=== PATIENT | male | born 1995 | race Caucasian/White ===

== ENCOUNTER 2016-03-26 18:06 | Emergency (ER) | payer OTHER, MEDICAID ==
[~2016-03-26] VITALS: Ht 172.7 cm; Wt 97.0 kg
[2016-03-26] MEDS ORDERED: TETANUS, DIPTHERIA, PERTUSSIS (ADACELL) VACCINE 0.5 ML VIAL IM ONE (19:00)
[2016-03-26 19:20] VITALS: BP 129/87
== END 2016-03-26 19:19 | disposition home or self-care (01) ==
LOC: ED 18:11
DX: S61.210A Laceration without foreign body of right index finger without damage to nail, initial encounter (principal); W26.8XXA Contact with other sharp object(s), not elsewhere classified, initial encounter; Y92.009 Unspecified place in unspecified non-institutional (private) residence as the place of occurrence of the external cause
CPT/HCPCS: 12001; 90471; 90715; 99282; 99283

== ENCOUNTER 2016-03-28 11:05 | Emergency (ER) | payer OTHER, MEDICAID ==
[~2016-03-28] VITALS: Ht 172.7 cm; Wt 95.1 kg
[2016-03-28 11:11] VITALS: BP 118/79
[2016-03-28] MEDS ORDERED: BACITRACIN OINTMENT 0.9 GM PACKET TOP ONE (11:20)
== END 2016-03-28 11:55 | disposition home or self-care (01) ==
LOC: EDUNIT# 11:05 → ED 11:07
DX: T81.31XA Disruption of external operation (surgical) wound, not elsewhere classified, initial encounter (principal)
CPT/HCPCS: 99282